=== PATIENT | female | born 1950 | race Caucasian/White ===

== ENCOUNTER 2016-10-15 15:27 | Outpatient (CLI) | payer SELFPAY | END 2016-10-15 15:28 | disposition EMS.NT | LOC: EMS 15:27 | PROVIDERS: ATTEND Surgery | DX: Z04.1 Encounter for examination and observation following transport accident (principal); V53.5XXA Driver of pick-up truck or van injured in collision with car, pick-up truck or van in traffic accident, initial encounter; Y92.413 State road as the place of occurrence of the external cause ==

== ENCOUNTER 2016-11-20 01:00 | Emergency (ER) | payer MEDICAID ==
--- NOTE | 2016-11-20 01:28 | ED Physician Documentation ---
PD HPI SYNCOPE - Stated complaint Stated Complaint: SYNCOPE - Chief complaint Chief Complaint: Neuro - History obtained from History obtained from: Patient, Family - History of Present Illness Witnessed: Unwitnessed Timing - onset: Enter time (00:15) Duration: Seconds Preceding symptoms: Light headed Associated symptoms: No: Seizure, Incontinant of urine, Incontinant of stool, Headache Injury occurred: Fell Pain level max: 0 Pain level now: 0 Similar symptoms before: Has not had sx before Recently seen: Not recently seen - Additional information Additional information: at approximately 12:15 AM this morning, patient got up from bed because she was having a muscle cramp in LLE. She experienced lightheadedness and felt generalized weakness. She next recalls waking up on the floor. Family member, who is present in the emergency department at bedside, was in an adjacent room and heard patient fall, thus checking immediately on her. he found patient on the floor, between a wall and a portable massage table that had fallen over. He states that patient was unconscious and unresponsive for no more than 10 seconds , and she rapidly had return to baseline level of consciousness and interaction. Patient denies history of similar problem. On presentation to emergency department, patient only complains of mild lightheadedness mild nausea and mild shortness of breath. Review of Systems Constitutional: reports: Reviewed and negative Eyes: reports: Reviewed and negative Ears: reports: Reviewed and negative Cardiac: reports: Reviewed and negative Respiratory: reports: Dyspnea (mild) GI: reports: Nausea. denies: Abdominal Pain, Vomiting Neurologic: reports: Syncope, LOC. denies: Focal weakness, Numbness, Difficulty speaking, Headache, Head injury PD PAST MEDICAL HISTORY - Past Medical History Past Medical History: No - Past Surgical History Past Surgical History: Yes - Present Medications Home Medications: Ambulatory Orders Medication Instructions Recorded Confirmed Cyclobenzaprine [Flexeril] 10 mg PO TID PRN #20 tablet 11/20/16 - Allergies Allergies/Adverse Reactions: Allergies Allergy/AdvReac Type Severity Reaction Status Date / Time Penicillins Allergy Hives Verified 11/20/16 01:11 - Social History Does the pt smoke?: No Smoking Status: Never smoker Does the pt drink ETOH?: No Does the pt have substance abuse?: No - Immunizations Immunizations are current?: Yes - POLST Patient has POLST: No PD ED PE NORMAL - Vitals Vital signs reviewed: Yes - General General: Alert and oriented X 3, No acute distress, Well developed/nourished - HEENT HEENT: PERRL, EOMI, Moist mucous membranes - Neck Neck: Supple, no meningeal sign, No bony TTP - Cardiac Cardiac: RRR, No murmur, No gallop, No rub - Respiratory Respiratory: No respiratory distress, Clear bilaterally - Abdomen Abdomen: Soft, Non tender - Derm Derm: Normal color, Warm and dry - Extremities Extremities: No tenderness to palpate, Normal ROM s pain, No edema - Neuro Neuro: Alert and oriented X 3, map mounter 2-12 intact, No motor deficit, No sensory deficit, Normal speech GCS Score: 15 Results - Vitals Vitals: Oxygen O2 Source Room air - EKG (time done) No standard instances Rate: Rate (enter#) (68) Rhythm: NSR Lagrange: Normal Intervals: Normal OK QRS: Normal Ischemia: Normal ST segments - Labs Labs: Laboratory Tests 11/20/16 11/20/16 11/20/16 02:14 02:14 02:14 WBC 10.9 H RBC 4.02 L Hgb 12.5 Hct 36.0 L MCV 89.5 MCH 31.0 MCHC 34.7 RDW 13.6 Plt Count 207 MPV 9.0 Neut # 7.8 H Lymph # 2.2 Dorado # 0.7 Eos # 0.2 Baso # 0.1 Absolute Nucleated RBC 0.00 Nucleated RBCs 0.0 Sodium 138 Potassium 3.7 Chloride 101 Carbon Dioxide 27 Anion Gap 10.0 BUN 15 Creatinine 0.8 Estimated GFR (MDRD) 72 L Glucose 97 Calcium 9.2 Total Bilirubin 0.5 AST 26 ALT 22 Alkaline Phosphatase 48 Troponin I < 0.04 Total Protein 6.4 L Albumin 4.2 Globulin 2.2 Albumin/Globulin Ratio 1.9 Lipase 36 - Rads (name of study) chest xray Radiology: Prelim report reviewed, See rad report PD MEDICAL DECISION MAKING - ED course Complexity details: reviewed results, re-evaluated patient, considered differential, d/w patient, d/w family ED course: on reevaluation, prior to discharge, patient is asymptomatic. Results of tests discussed with patient, and she is comfortable being discharged at this time. Departure - Departure Disposition: 01 Home, Self Care Clinical Impression: Syncope Condition: Good Instructions: ED Fainting Unkn Cause Follow-Up: [facility] [Provider Group] [facility] [Provider Group] Prescriptions: Cyclobenzaprine [Flexeril] 10 mg PO TID PRN #20 tablet PRN Reason: Spasms Discharge Date/Time: 11/20/16 04:21
[2016-11-20 02:28] LABS: BASOPHILS # (AUTO) 0.1 10^3/uL (0.0-0.1); BASOPHILS % (AUTO) 0.6 %; EOSINOPHILS # (AUTO) 0.2 10^3/uL (0.0-0.7); EOSINOPHILS % (AUTO) 1.9 %; HGB - HEMOGLOBIN 12.5 g/dL (12.0-16.0); LYMPHOCYTES # (AUTO) 2.2 10^3/uL (1.5-3.5); LYMPHOCYTES % (AUTO) 19.8 %; MEAN CORPUSCULAR HGB CONC 34.7 g/dL (32.0-36.0); MEAN CORPUSCULAR VOLUME 89.5 fL (81.0-99.0); MONOCYTES # (AUTO) 0.7 10^3/uL (0.0-1.0); NEUTROPHILS # (AUTO) 7.8 10^3/uL (1.5-6.6); NEUTROPHILS % (AUTO) 71.7 %; RED BLOOD COUNT 4.02 10^6/uL (4.20-5.40); RED CELL DISTRIBUTION WIDTH 13.6 % (12.0-15.0); UNCORRECTED WHITE BLOOD COUNT 10.9 x10^3/uL; WHITE BLOOD COUNT 10.9 x10^3/uL (4.8-10.8)
[2016-11-20 02:36] LABS: ALBUMIN/GLOBULIN RATIO 1.9 (1.0-2.2); BILIRUBIN,TOTAL 0.5 mg/dL (0.2-1.0); CALCIUM 9.2 mg/dL (8.5-10.3); CREATININE 0.8 mg/dL (0.4-1.0); POTASSIUM 3.7 mmol/L (3.5-5.0); TOTAL PROTEIN 6.4 g/dL (6.7-8.2)
--- NOTE | 2016-11-20 02:45 | XRAY Preliminary Report ---
Exam: XR Chest 2 View PA/LAT IMPRESSION: 1. Large lung volumes and borderline heart size. [facility] SITE ID: [id number]
--- NOTE | 2016-11-20 02:48 | XRAY Report ---
EXAM: CHEST RADIOGRAPHY EXAM DATE: 11/20/2016 02:22 AM. CLINICAL HISTORY: Syncope. COMPARISON: None. TECHNIQUE: 2 views. FINDINGS: Lungs/Pleura: Large lung volumes. No alveolar consolidation or pleural effusion. No pneumothorax. Mediastinum: Heart size upper normal. Other: None. IMPRESSION: 1. Large lung volumes and borderline heart size. [facility] Referring Provider Line: [phone] SITE ID: [id number]
[2016-11-20 03:28] VITALS: BP 129/84
[2016-11-20] MEDS ORDERED: CYCLOBENZAPRINE 10 MG TABLET PO STA (04:00)
[2016-11-20] MEDS ORDERED: CYCLOBENZAPRINE 10 MG TABLET PO ONE ×2 (04:08→04:16)
== END 2016-11-20 04:21 | disposition home or self-care (01) ==
LOC: ED 01:00
DX: R55 Syncope and collapse (principal)
CPT/HCPCS: 36415; 71020; 80053; 83690; 84484; 85025; 93005; 93010; 99284; A9270